=== PATIENT | female | born 1930 | race Caucasian/White ===

== ENCOUNTER 2020-04-26 10:39 | Emergency (ER) | payer MEDICARE, BC ==
[~2020-04-26] VITALS: Ht 157.5 cm; Wt 52.8 kg
[2020-04-26 10:44] VITALS: BP 124/89
--- NOTE | 2020-04-26 11:26 | NUR ---
Dr. Dowd is with the patient at this time.
[2020-04-26] MEDS ORDERED: TETanus/Pertussis (Acell)/Diphther VAC/PF (Tdap-Adult) 0.5ml syringe IMVAC ONE (11:40)
== END 2020-04-26 11:55 | disposition home or self-care (01) ==
LOC: ER 10:40
DX: S51.011A Laceration without foreign body of right elbow, initial encounter (principal); E78.00 Pure hypercholesterolemia, unspecified; G89.29 Other chronic pain; W19.XXXA Unspecified fall, initial encounter; Y93.89 Activity, other specified; Y92.89 Other specified places as the place of occurrence of the external cause; Y99.8 Other external cause status
CPT/HCPCS: 12002; 90471; 90715; 99283

== ENCOUNTER 2022-02-03 06:32 | Emergency (ER) | payer MEDICARE, BC ==
[~2022-02-03] VITALS: Ht 157.5 cm; Wt 51.8 kg
[2022-02-03 06:37] VITALS: BP 178/68
[2022-02-03] MEDS ORDERED: sulfamethoxazole/trimethoprim DS (800/160mg) tablet PO ONE (07:10)
[2022-02-03] MEDS ORDERED: SULF1TAB49 PO (07:12)
== END 2022-02-03 07:26 | disposition home or self-care (01) ==
LOC: ER 06:32
DX: J34.1 Cyst and mucocele of nose and nasal sinus (principal); E78.00 Pure hypercholesterolemia, unspecified; G89.29 Other chronic pain; Z79.899 Other long term (current) drug therapy
CPT/HCPCS: 99283